=== PATIENT | female | born 1970 | race Two or more races ===

== ENCOUNTER 2021-08-04 21:35 | Emergency (ER) | payer MEDICAID ==
[~2021-08-04] VITALS: Ht 165.1 cm; Wt 99.8 kg
[2021-08-04 23:01] LABS: Basophils # (auto) 0.1 10 ^3/uL (0-0.2); Basophils % (auto) 0.7 % (0.0-2.0); Eosinophils # (auto) 0.1 10 ^3/uL (0-0.8); Eosinophils % (auto) 1.6 % (0.0-7.0); Hematocrit 31.1 % (36.0-46.0); Hemoglobin 9.7 g/dL (12.2-16.2); Lymphocytes # (auto) 1.8 10 ^3/uL (0.4-5.4); Lymphocytes % (auto) 19.8 % (10.0-50.0); Mean Corpuscular Hemoglobin 23.7 pg (28.0-32.0); Mean Corpuscular Hgb Conc. 31.1 g/dL (32.0-36.0); Mean Corpuscular Volume 76.2 fL (80.0-100.0); Monocytes # (auto) 1.2 10 ^3/uL (0-1.3); Monocytes % (auto) 13.5 % (0.0-12.0); Neutrophils # (auto) 5.8 10 ^3/uL (1.6-8.6); Neutrophils % (auto) 64.4 % (37.0-80.0); Nucleated Red Blood Cells % 0.1 %; Red Blood Cells 4.07 10^6/uL (4.0-5.20); White Blood Cell 9.1 10^3/uL (4.4-10.8)
[2021-08-04 23:03] LABS: Red Cell Distribution Width 20.1 % (11.8-14.3)
[2021-08-04 23:26] LABS: Alanine Aminotransferase 19 U/L (13-56); Albumin 2.8 g/dL (3.4-5.0); Anion Gap 9 (5-15); Aspartate Aminotransferase 20 U/L (15-37); BUN/Creatinine Ratio 8.6; Blood Urea Nitrogen 8 mg/dL (7-18); Calcium 8.6 mg/dL (8.5-10.1); Carbon Dioxide 26 mmol/L (21-32); Chloride 103 mmol/L (98-107); GFR African American 82 mL/min; GFR Non-African American 68 mL/min; Glucose 101 mg/dL (74-106); Magnesium 2.1 mg/dL (1.6-2.6); Potassium 3.4 mmol/L (3.5-5.1); Sodium 138 mmol/L (136-145)
[2021-08-04 23:31] LABS: Alkaline Phosphatase 91 U/L (45-117); Bilirubin, Total 0.4 mg/dL (0.2-1.0); Total Protein 9.6 g/dL (6.4-8.2)
[2021-08-05 01:08] LABS: Urine Bacteria MANY /hpf (None Seen); Urine Blood TRACE /uL (Negative); Urine Mucus MANY (None Seen); Urine Specific Gravity 1.031 (1.001-1.035); Urine WBC 159 /hpf (0 - 5)
[2021-08-05] MEDS ORDERED: IOHEXOL 350 MG/ML 100ML IJ ONE (06:42)
[2021-08-05 07:59] VITALS: BP 129/78
== END 2021-08-05 07:58 | disposition home or self-care (01) ==
LOC: ER 21:38
DX: R06.02 Shortness of breath (principal); R00.0 Tachycardia, unspecified; R79.1 Abnormal coagulation profile; Z20.822 Contact with and (suspected) exposure to COVID-19
CPT/HCPCS: 36415; 71045; 71275; 80053; 81001; 83735; 84484; 85025; 85379; 87426; 93005; 99285; Q9967

== ENCOUNTER 2025-01-29 19:28 | Emergency (ER) | payer MEDICAID ==
[~2025-01-29] VITALS: Ht 160 cm; Wt 89.7 kg
[2025-01-29 19:49] VITALS: BP 137/85; PULSE 116; RESP 18; TEMP 98.4; O2SAT 96
[2025-01-29] MEDS ORDERED: IBUP-1456 PO (21:52)
--- NOTE | 2025-01-29 21:52 | ED.PDOC ---
Musculoskeletal HPI Comments 54-YEAR-OLD FEMALE PRESENTS TO ER WITH COMPLAINTS OF BILATERAL HAND PAIN X1 WEEK. PATIENT REPORTS BILATERAL HAND PAIN AND BILATERAL KNEE PAIN THAT'S BEEN OCCURRING WITH THE "COLD WEATHER" X1 WEEK. DENIES ANY TRAUMA/INJURY. SHE RATES HER CURRENT PAIN AN 8/10. NOTES THAT SHE HAS BEEN TAKING IBUPROFEN WITH SOME RELIEF. DENIES FEVER, BODY ACHES, CHILLS, SKIN CHANGES, NUMBNESS/TINGLING OR ANY FURTHER SYMPTOMS/COMPLAINTS Chief Complaint: Upper Extremity Time Seen by MD: 19:59 Primary Care Provider: PANTERA Reviewed Notes: Nurses Notes, Medications, Allergies Allergies: Coded Allergies: NO KNOWN ALLERGIES (Unverified , 08/04/21) Home Meds Active Scripts Ibuprofen (Ibuprofen) 800 Mg Tab, 1 TAB PO TID PRN, #30 TAB 0 Refills Prov:JOHANTHAN YANEZ 01/29/25 Information Source: Patient Mode of Arrival: Ambulatory Past Medical History PAST MEDICAL HISTORY: Denies Surgical History: Denies all surgeries [employer] WORK[employer] History: No Pertinent [employer] WORK[employer] History Family History Family History: Unknown Social History Smoker: Non-Smoker Alcohol: Denies ETOH Use Drugs: Marijuana, Methamphetamine Lives In: Home Constitutional: denies: chills, diaphoresis, fatigue, fever, malaise, sweats, weakness, others EENTM: denies: blurred vision, double vision, ear bleeding, ear discharge, ear drainage, ear pain, ear ringing, eye pain, eye redness, hearing loss, mouth pain, mouth swelling, nasal discharge, nose bleeding, nose congestion, nose pa in, photophobia, tearing, throat pain, throat swelling, voice changes, others Respiratory: denies: cough, hemoptysis, orthopnea, SOB at rest, shortness of breath, SOB with excertion, stridor, wheezing, others Cardiovascular: denies: chest pain, dizzy spells, diaphoresis, Dyspnea on exertion, edema, irregular heart beat, left arm pain, lightheadedness, palpitations, PND, syncope, others Gastrointestinal: denies: abdomen distended, abdominal pain, blood streaked bowels, constipated, diarrhea, dysphagia, difficulty swallowing, hematemesis, melena, nausea, poor appetite, poor fluid intake, rectal bleeding, rectal pain, vomiting, others Genitourinary: denies: abnormal vagina bleeding, burning, dyspareunia, dysuria, flank pain, frequency, hematuria, incontinence, pain, , vagina discharge, urgency, others Neurological: denies: dizziness, fainting, headache, left sided numbness, left sided weakness, numbness, paresthesia, pre-existing deficit, right sided numbness, right sided weakness, seizure, speech problems, tingling, tremors, weakness, others Musculoskeletal: reports: others ( STATED IN HPI) Integumetry: denies: bruises, change in color, change in hair/nails, dryness, laceration, lesions, lumps, rash, wounds, others Allergic/Immunocompromised: denies: Difficulty Healing, Frequent Infections, Hives, Itching, others Hematologic/Lymphatic: denies: anemia, blood clots, easy bleeding, easy bruising, swollen glands, others Endocrine: denies: excessive hunger, excessive sweating, excessive thirst, excessive urination, flushing, intolerance to cold, intolerance to heat, unexplained weight gain, unexplained weight loss, others Psychiatric: denies: anxiety, bipolar disorder, depression, hopeless, panic disorder, schizophrenia, sleepless, suicidal, others Physical Exam General Appearance: No Apparent Distress, Obese HEENT: PERRL/EOMI Neck: Full Range of Motion, Non-Tender, Normal Respiratory: Chest Non-Tender, Lungs Clear, No Accessory Muscle Use, No Respiratory Distress, Normal Breath Sounds Cardiovascular: No Murmur, No Gallop, Regular Rate/Rhythm Breast Exam: Deferred Gastrointestinal: NOT DONE Genitalia: Deferred Pelvic: Deferred Rectal: Deferred Extremities: Normal capillary refill, Normal range of motion Musculoskeletal : Extremity Location: Hand (SLIGHT TTP DIFFUSE TO ALL JOINTS OF BILATERAL HANDS NOTED. NO DEFORMITY/SKIN CHANGES NOTED. PATIENT ABLE TO FULLY MOVE ALL FINGERS OF BILATERAL HANDS. PULSES INTACT), Knee (NO TTP/SKIN CHANGES TO BILATERAL KNEES NOTED. STEADY GAIT APPRECIATED) Neurologic: Alert, pheresis nurse II-XII nml as Tested, No Motor Deficits, Normal Affect, Normal Mood, No Sensory Deficits Cerebellar Function: Normal Reflexes: Normal Skin: Dry, Normal Color, Warm Peripheral Pulses: 2+ Radial (R), 2+ Radial (L), 2+ Brachial (R), 2+ Brachial (L) Lymphatic: No Adenopathy Was a procedure done? Was a procedure done?: No Sedation Sedation?: No Differential Diagnosis EXT Differential Diagnosis: Cellulitis, Fracture, Dislocation, Neurovascular injury X-Ray, Labs, Meds, VS Vital Signs Date Time Temp Pulse Resp B/P (MAP) Pulse Ox O2 Delivery O2 Flow Rate FiO2 01/29/25 19:49 116 18 96 Room Air 01/29/25 19:49 98.4 116 18 137/85 (102) 96 98.4 01/29/25 19:49 98.4 116 18 137/85 (102) 96 98.4 PATIENT NEUROVASCULARLY INTACT AND IN NO DISTRESS DURING ER VISIT/PRIOR TO DISCHARGE METHAMPHETAMINE/CANNABIS CESSATION DISCUSSED AND ADVISED ADVISED TO FOLLOW UP WITH PCP AND ORTHOPEDICS IN 1-2 DAYS PATIENT VERBALIZED UNDERSTANDING AND AGREEABLE WITH CURRENT PLAN OF CARE ADVISED TO RETURN TO ER IMMEDIATELY IF SYMPTOMS WORSEN Time of 1ST Reevaluation: 21:24 Reevaluation 1ST: N/A Patient Education/Counseling: Diagnosis, Treatment, Prognosis, Need For Follow Up Family Education/Counseling: No Family Present Departure 1 Departure Time of Disposition: 21:54 Impression: Primary Impression: Arthralgia of hand, left Additional Impressions: Arthralgia of hand, right Arthralgia of knee, left Arthralgia of knee, right Disposition: 01 HOME / SELF CARE / HOMELESS Condition: Stable e-Prescriptions Ibuprofen (Ibuprofen) 800 Mg Tab 1 TAB PO TID PRN, #30 TAB 0 Refills Prov: JOHNATHAN YANEZ 01/29/25 Discharged With: Self Critical Care Note Critical Care Time?: No Stability Stability form required: No Heart Score Heart Score: Heart Score Response (Comments) Value History N/A 0 EKG N/A 0 Age N/A 0 Risk Factors N/A 0 Troponin N/A 0 Total 0 JOHNATHAN YANEZ Jan 29, 2025 21:52
== END 2025-01-29 21:56 | disposition home or self-care (01) ==
LOC: ER 19:36
DX: M25.542 Pain in joints of left hand (principal); M25.541 Pain in joints of right hand; M25.562 Pain in left knee; M25.561 Pain in right knee; F12.90 Cannabis use, unspecified, uncomplicated